=== PATIENT | male | born 1955 | race Caucasian/White ===

== ENCOUNTER → 2023-12-25 06:45 | Outpatient (REF) | payer BC, SELFPAY ==
[2023-12-25] MEDS: LEXISCAN 0.400000000000000022 MG IV (09:06)
[2023-12-25] MEDS: FLUSH (NSS) 1 FLUSH IV (09:20)
== END ==
LOC: RCS 06:45
PROVIDERS: ATTENDING PHYSICIAN Internal Medicine Cardiovascular Disease; FAMILY PHYSICIAN Family Medicine
DX: I42.8 Other cardiomyopathies (principal)
CPT/HCPCS: 78452; 93017; A9500; J2785